=== PATIENT | male | born 1975 | race Caucasian/White ===

== ENCOUNTER → 2016-05-20 | Outpatient (CLI) | payer OTHER ==
--- NOTE | 2016-05-20 09:58 | XR ---
EXAM TYPE: LUMBAR SPINE X RAY SERIES COMPARISON: NONE HISTORY: Lower back pain TECHNIQUE: 4 views are submitted. FINDINGS: Alignment is anatomic. The pedicles are intact. The transverse processes are intact. There is no s pondylolysis or spondylolisthesis. Chronic appearing deformity of the transverse process of L1. Dege nerative disc disease and facet arthropathy L5-S1 with mild hypertrophic changes. Vascular calcificat ion seen. IMPRESSION: 1. No acute process. If symptoms persist consider MRI.
== END | disposition home or self-care (01) ==
LOC: RADXRMAIN 09:30
PROVIDERS: ATTEND Internal Medicine
DX: M54.5 Low back pain (principal)
CPT/HCPCS: 72100

== ENCOUNTER → 2016-06-06 | Outpatient (CLI) | payer OTHER ==
--- NOTE | 2016-06-06 18:40 | MR ---
EXAMINATION TYPE: MR lumbar spine wo con DATE OF EXAM: 06/06/2016 2:10 PM COMPARISON: NONE HISTORY: Low back pain CONTRAST: 0 mL intravenous . TECHNIQUE: Multiplanar, multisequence images of the lumbar spine were acquired. FINDINGS: L5-S1: Disc bulging is present with moderate anterior thecal sac compression. Some subligamentous dis c extension beyond the L5 inferior endplate may be present. No spinal canal stenosis is present. Ther e is endplate change at the L5-S1 level. No spinal canal stenosis. Moderate right foraminal stenosi s is present. Disc desiccation is present. L4-L5: Broad-based disc bulge is present. On T2-weighted sequences there is increased signal within t he posterior superior disc space suggesting an annular tear. This has mild anterior thecal sac compre ssion. No AP spinal canal stenosis is present. Neural foramen are patent. No spinal canal stenosis. No foraminal stenosis. Disc desiccation is present.. L3-L4: No significant disc bulge or disc herniation. No spinal canal stenosis. No foraminal stenosi s. . L2-L3: No significant disc bulge or disc herniation. No spinal canal stenosis. No foraminal stenosi s. . L1-L2: No significant disc bulge or disc herniation. No spinal canal stenosis. No foraminal stenosi s. . T12-L1: No significant disc bulge or disc herniation. No spinal canal stenosis. No foraminal stenos is. . IMPRESSION: 1. Disc bulge at L5-S1 has some subligamentous disc herniation extension beyond the L5 endplate. This has mild anterior thecal sac compression. Moderate right foraminal stenosis present 2. Annular tear with disc bulge L4-5 with mild anterior thecal sac compression.
== END | disposition home or self-care (01) ==
LOC: RADMRIMAIN 13:43
PROVIDERS: ATTEND Internal Medicine
DX: M99.73 Connective tissue and disc stenosis of intervertebral foramina of lumbar region (principal); M51.27 Other intervertebral disc displacement, lumbosacral region
CPT/HCPCS: 72148

== ENCOUNTER 2017-04-01 15:14 | Observation (INO) | payer OTHER ==
[2017-04-01] MEDS ORDERED: ASPIRIN 81 MG PO STA (16:52)
[2017-04-01] MEDS ORDERED: NITROGLYCERIN OINT 1 INCH/GM PACKET TOPICAL STA (16:52)
--- NOTE | 2017-04-01 16:56 | ED ---
General Adult HPI - General Chief complaint: Chest Pain Stated complaint: Chest Pain Time Seen by Provider: 04/01/17 15:32 Source: patient, RN notes reviewed Mode of arrival: wheelchair - History of Present Illness Initial comments: This is a 42-year-old male who presents emergency Department complaining of chest pain for 3 hours. Patient states the pain is in the center of his chest. Patient states deep breathing does not make it worse. Patient states she's also been short of breath and somewhat diaphoretic when this first started. Patient states he is a smoker and he has a mother and a father with previous heart attacks. Patient denies any hypertension high cholesterol diabetes. Patient states he hasn't noticed anything his made the chest pain worse. Patient states currently the chest pain is still there but not as bad as it was earlier. Patient denies any palpitations. Patient denies abdominal pain patient denies any nausea vomiting diarrhea. Patient denies lightheadedness dizziness or near-syncopal episode. Patient denies any swelling to legs or calf pain. - Related Data Home Medications Medication Instructions Recorded Confirmed Azithromycin [Zithromax Z-pack] See Taper PO DAILY 04/01/17 04/01/17 methylPREDNISolone [Medrol Dose See Taper PO DIRECTED 04/01/17 04/01/17 Pack] Allergies Allergy/AdvReac Type Severity Reaction Status Date / Time No Known Allergies Allergy Verified 04/01/17 16:56 Review of Systems ROS Statement: Those systems with pertinent positive or pertinent negative responses have been documented in the HPI. ROS Other: All systems not noted in ROS Statement are negative. 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, SHINGLES 2011 History of Any Multi-Drug Resistant Organisms: None Reported Past Surgical History: Tonsillectomy Additional Past Surgical History / Comment(s): BULGING DISC Past Anesthesia/Blood Transfusion Reactions: No Reported Reaction Past Psychological History: No Psychological Hx Reported Smoking Status: Current every day smoker Past Alcohol Use History: None Reported Past Drug Use History: None Reported - Past Family History Mother Family Medical History: Diabetes Mellitus Additional Family Medical History / Comment(s): HEART DISEASE Father Family Medical History: Diabetes Mellitus General Exam - General Exam Comments Initial Comments: GENERAL: Patient is well-developed and well-nourished. Patient is nontoxic and well- hydrated and is in mild distress. ENT: Neck is soft and supple. No significant lymphadenopathy is noted. Oropharynx is clear. Moist mucous membranes. Neck has full range of motion without eliciting any pain. EYES: The sclera were anicteric and conjunctiva were pink and moist. Extraocular movements were intact and pupils were equal round and reactive to light. Eyelids were unremarkable. PULMONARY: Unlabored respirations. Good breath sounds bilaterally. No audible rales rhonchi or wheezing was noted. CARDIOVASCULAR: There is a regular rate and rhythm without any murmurs gallops or rubs. ABDOMEN: Soft and nontender with normal bowel sounds. SKIN: Skin is clear with no lesions or rashes and otherwise unremarkable. NEUROLOGIC: Patient is alert and oriented x3. Cranial nerves II through XII are grossly intact. Motor and sensory are also intact. Normal speech, volume and content. Symmetrical smile. MUSCULOSKELETAL: Normal extremities with adequate strength and full range of motion. No lower extremity swelling or edema. No calf tenderness. LYMPHATICS: No significant lymphadenopathy is noted PSYCHIATRIC: Normal psychiatric evaluation. Normal interpersonal interactions appears functionally intact in deals appropriately with others. No signs of depression. No signs of anxiety. Course Vital Signs 04/01/17 04/01/17 15:18 17:10 Temperature 97 F L Pulse Rate 109 H 70 Respiratory 22 18 Rate Blood Pressure 139/83 132/79 O2 Sat by Pulse 100 100 Oximetry Medical Decision Making - Medical Decision Making EKG shows a normal sinus rhythm at 86 bpm OH interval is on a 54 QRS is 82 QT interval 366 QTC is 437. Patient's EKG shows no ST segment elevation or depression or T wave abnormalities are noted. Chest x-ray showed no acute abnormality. Patient had Nitropaste and aspirin in the emergency department and when I reevaluated the patient he stated his pain seemed to get better with the Nitropaste. Because this patient's unstable angina started the patient on heparin. I called Dr. Peters admitted the patient I wrote admitting orders and I consult cardiology. - Lab Data Result diagrams: 04/01/17 16:43 04/01/17 16:43 Lab Results 04/01/17 04/01/17 04/01/17 Range/Units 16:43 16:43 16:43 WBC 8.9 (3.8-10.6) k/uL RBC 4.83 (4.30-5.90) m/uL Hgb 15.2 (13.0-17.5) gm/dL Hct 46.1 (39.0-53.0) % MCV 95.5 (80.0-100.0) fL MCH 31.4 (25.0-35.0) pg MCHC 32.9 (31.0-37.0) g/dL RDW 12.2 (11.5-15.5) % Plt Count 287 (150-450) k/uL Neutrophils % 54 % Lymphocytes % 31 % Monocytes % 7 % Eosinophils % 7 % Basophils % 1 % Neutrophils # 4.8 (1.3-7.7) k/uL Lymphocytes # 2.7 (1.0-4.8) k/uL Monocytes # 0.6 (0-1.0) k/uL Eosinophils # 0.6 (0-0.7) k/uL Basophils # 0.1 (0-0.2) k/uL PT (9.0-12.0) sec INR (<1.2) APTT (22.0-30.0) sec Sodium 142 (137-145) mmol/L Potassium 3.9 (3.5-5.1) mmol/L Chloride 104 (98-107) mmol/L Carbon Dioxide 25 (22-30) mmol/L Anion Gap 13 mmol/L BUN 15 (9-20) mg/dL Creatinine 1.00 (0.66-1.25) mg/dL Est GFR (MDRD) Af Amer >60 (>60 ml/min/1.73 sqM) Est GFR (MDRD) Non-Af >60 (>60 ml/min/1.73 sqM) Glucose 89 (74-99) mg/dL Calcium 9.7 (8.4-10.2) mg/dL Magnesium 2.2 (1.6-2.3) mg/dL Total Bilirubin 0.4 (0.2-1.3) mg/dL AST 31 (17-59) U/L ALT 26 (21-72) U/L Alkaline Phosphatase 66 (38-126) U/L Total Creatine Kinase 204 H (55-170) U/L CK-MB (CK-2) 1.2 (0.0-2.4) ng/mL CK-MB (CK-2) Rel Index 0.6 Troponin I <0.012 (0.000-0.034) ng/mL Total Protein 7.1 (6.3-8.2) g/dL Albumin 4.2 (3.5-5.0) g/dL 04/01/17 Range/Units 16:43 WBC (3.8-10.6) k/uL RBC (4.30-5.90) m/uL Hgb (13.0-17.5) gm/dL Hct (39.0-53.0) % MCV (80.0-100.0) fL MCH (25.0-35.0) pg MCHC (31.0-37.0) g/dL RDW (11.5-15.5) % Plt Count (150-450) k/uL Neutrophils % % Lymphocytes % % Monocytes % % Eosinophils % % Basophils % % Neutrophils # (1.3-7.7) k/uL Lymphocytes # (1.0-4.8) k/uL Monocytes # (0-1.0) k/uL Eosinophils # (0-0.7) k/uL Basophils # (0-0.2) k/uL PT 9.5 (9.0-12.0) sec INR 1.0 (<1.2) APTT 22.7 (22.0-30.0) sec Sodium (137-145) mmol/L Potassium (3.5-5.1) mmol/L Chloride (98-107) mmol/L Carbon Dioxide (22-30) mmol/L Anion Gap mmol/L BUN (9-20) mg/dL Creatinine (0.66-1.25) mg/dL Est GFR (MDRD) Af Amer (>60 ml/min/1.73 sqM) Est GFR (MDRD) Non-Af (>60 ml/min/1.73 sqM) Glucose (74-99) mg/dL Calcium (8.4-10.2) mg/dL Magnesium (1.6-2.3) mg/dL Total Bilirubin (0.2-1.3) mg/dL AST (17-59) U/L ALT (21-72) U/L Alkaline Phosphatase (38-126) U/L Total Creatine Kinase (55-170) U/L CK-MB (CK-2) (0.0-2.4) ng/mL CK-MB (CK-2) Rel Index Troponin I (0.000-0.034) ng/mL Total Protein (6.3-8.2) g/dL Albumin (3.5-5.0) g/dL Critical Care Time Critical Care Time: Yes Total Critical Care Time: 35 Disposition Clinical Impression: Unstable angina Disposition: ADMITTED IP TO THIS HOSP Referrals: Jesus Peters MD [Primary Care Provider] - 1-2 days Time of Disposition: 18:16
[2017-04-01 17:13] LABS: Basophils # (A) 0.1 k/uL (0-0.2); Basophils % (A) 1 %; Eosinophils # (A) 0.6 k/uL (0-0.7); Eosinophils % (A) 7 %; HCT 46.1 % (39.0-53.0); HGB 15.2 gm/dL (13.0-17.5); Lymphocytes # (A) 2.7 k/uL (1.0-4.8); Lymphocytes % (A) 31 %; MCH 31.4 pg (25.0-35.0); MCHC 32.9 g/dL (31.0-37.0); MCV 95.5 fL (80.0-100.0); Mean Platelet Volume 6.9; Monocytes # (A) 0.6 k/uL (0-1.0); Monocytes % (A) 7 %; Neutrophils # (A) 4.8 k/uL (1.3-7.7); Neutrophils % (A) 54 %; Platelet Count 287 k/uL (150-450); RBC 4.83 m/uL (4.30-5.90); RDW 12.2 % (11.5-15.5); WBC 8.9 k/uL (3.8-10.6)
[2017-04-01 17:29] LABS: ALT 26 U/L (21-72); AST 31 U/L (17-59); Albumin 4.2 g/dL (3.5-5.0); Alkaline Phosphatase 66 U/L (38-126); Anion Gap 13 mmol/L; Blood Urea Nitrogen 15 mg/dL (9-20); Calcium 9.7 mg/dL (8.4-10.2); Carbon Dioxide 25 mmol/L (22-30); Chloride 104 mmol/L (98-107); Glucose 89 mg/dL (74-99); Magnesium 2.2 mg/dL (1.6-2.3); Potassium 3.9 mmol/L (3.5-5.1); Sodium 142 mmol/L (137-145); Total Bilirubin 0.4 mg/dL (0.2-1.3); Total Protein 7.1 g/dL (6.3-8.2)
--- NOTE | 2017-04-01 17:29 | XR ---
EXAMINATION TYPE: XR chest 2V DATE OF EXAM: 04/01/2017 COMPARISON: 09/03/2015 HISTORY: Chest pain TECHNIQUE: Frontal and lateral views of the chest are obtained. FINDINGS: Heart and mediastinum are normal. Lungs are clear. Diaphragm is normal. Bony thorax is int act. There are chest leads. Conclusion normal chest. No change.
[2017-04-01 17:38] LABS: Creatine Kinase 204 U/L (55-170)
[2017-04-01 17:51] LABS: Creatine Kinase MB 1.2 ng/mL (0.0-2.4); Troponin I <0.012 ng/mL (0.000-0.034)
[2017-04-01 17:55] LABS: Partial Thromboplastin Time 22.7 sec (22.0-30.0)
[2017-04-01 17:59] LABS: Prothrombin Time 9.5 sec (9.0-12.0)
[2017-04-01] MEDS ORDERED: HEPARIN SODIUM,PORCINE 5,000 UNIT/ML 1 ML VIAL IV ONE (18:14)
[2017-04-01] MEDS ORDERED: HEPARIN SOD,PORK IN 0.45% NACL 25,000 UNIT in 0.45% NACL 1 500ML.BAG IV SCH (18:15)
[2017-04-01] MEDS ORDERED: NITROGLYCERIN SL TABS 0.4 MG TAB SUBLINGUAL PRN (18:16)
[2017-04-01 20:45] VITALS: BMI 21.7
[2017-04-01] MEDS ORDERED: MORPHINE SULFATE 4 MG/ML SYRINGE IVP PRN (21:10)
[2017-04-01] MEDS ORDERED: IBUPROFEN 800 MG TAB PO PRN (21:10)
[2017-04-01] MEDS: IBUPROFEN 400 MG TAB PO PRN (22:24)
[2017-04-01 23:04] LABS: Creatine Kinase 161 U/L (55-170)
[2017-04-01 23:17] LABS: Creatine Kinase MB 0.9 ng/mL (0.0-2.4); Troponin I <0.012 ng/mL (0.000-0.034)
[2017-04-02] MEDS: NITROGLYCERIN OINT 1 INCH/GM PACKET TOPICAL SCH ×2 (00:37→06:17)
[2017-04-02 04:38] LABS: Cholesterol 128 mg/dL (<200); HDL Cholesterol 41 mg/dL (40-60); LDL Cholesterol,Calculated 61 mg/dL (0-99); Triglycerides 131 mg/dL (<150)
[2017-04-02 04:51] LABS: Creatine Kinase 120 U/L (55-170)
[2017-04-02 05:04] LABS: Creatine Kinase MB 0.7 ng/mL (0.0-2.4); Troponin I <0.012 ng/mL (0.000-0.034)
[2017-04-02] MEDS: IBUPROFEN 400 MG TAB PO PRN (08:57)
[2017-04-02 09:00] VITALS: RESP 16
[2017-04-02] MEDS ORDERED: ASPIRIN 325 MG TAB PO SCH (09:00)
--- NOTE | 2017-04-02 10:09 | P.CRDCN ---
History of Present Illness Consult date: 04/02/17 Consult reason: chest pain History of present illness: Mr. Lange is a pleasant 42-year-old male past medical history significant for gasstroesophageal reflux disease, rheumatic fever as a child and chronic tobacco use. He denies history of coronary artery disease and has not followed with a vice chairman for any reason. We have been asked to see him in consultation for chest pain. He states he had a tooth pulled on Wednesday and was recovering typically at home with mild mouth discomfort. He woke up morning with a sharp midsternal chest pain associated with shallow labored breathing, dizziness, diaphoresis and radiation through to the back. He states the dizziness diaphoresis and shortness of breath persisted for approximately 45 minutes and seemed to resolve by the time he got to the emergency room. He continued to have sharp chest pain until he was given morphine injection. The pain subsided after that but came back again through the night. The pain comes at rest and is not associated with movement or deep inspiration. Telemetry tracings have been unremarkable. At the time of my exam he is chest pain free and denies shortness of breath, dizziness, palpitations, diaphoresis, nausea or vomiting. He also denies history of PND or orthopnea. He does however complain of mildy productive cough recently that he is supposed to be on an antibiotic but hasn't picked it up fro the pharmacy yet. EKG on arrival reveals sinus mechanism with no acute ST or T-wave abnormalities. Chest xray is negative for an acute cardiopulmonary process. Laboratory data reviewed, hgb 15.2, plt 287, potassium 3.9, magnesium 2.2, creatinine 1.0, cardiac enzymes negative x3, LDL 61, HDL 41 He takes no daily medications. Most recent stress test performed in August 2015 with a stress echocardiogram was negative for evidence of stress-induced ischemia. Most recent echocardiogram was performed in August 2015 revealed reserved left ventricular systolic function with ejection fraction 55%, mild MR, mild TR and mild aortic valve sclerosis with no stenosis. Review of Systems At the time of my exam: CONSTITUTIONAL: Denies fever. Denies chills. EYES: Denies blurred vision. Denies vision changes. Denies eye pain. EARS, NOSE, MOUTH & THROAT: Denies headache. Denies sore throat. Denies ear pain. Complains of right mouth pain status post tooth extraction. CARDIOVASCULAR: Denies chest pain. Denies shortness of breath. Denies orthopnea. Denies PND. Denies palpitations. RESPIRATORY: Denies cough. GASTROINTESTINAL: Denies abdominal pain. Denies diarrhea. Denies constipation. Denies nausea. Denies vomiting. MUSCULOSKELETAL: Denies myalgias. INTEGUMENTARY: Denies pruitis. Denies rash. NEUROLOGIC: Denies numbness. Denies tingling. Denies weakness. PSYCHIATRIC: Denies anxiety. Denies depression. ENDOCRINE: Denies fatigue. Denies weight change. Denies polydipsia. Denies polyurina. GENITOURINARY: Denies burning, hematuria or urgency with micturation. HEMATOLOGIC: Denies history of anemia. Denies bleeding. 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 PT'S DAUGHTER LIVES WITH HIM. NO SERVICE IN BACKGROUND. PT STATED HE HAS'NT BEEN TO A DR IN 10 YEARS. Smoking Status: Current every day smoker Past Alcohol Use History: None Reported Additional Past Alcohol Use History / Comment(s): STARTED SMOKING AT AGE 13, SMOKES 1 PPD, SMOKING INFO GIVEN TO PT. Past Drug Use History: None Reported - Past Family History Mother Family Medical History: Diabetes Mellitus Additional Family Medical History / Comment(s): HEART DISEASE Father Family Medical History: Diabetes Mellitus Medications and Allergies Home Medications Medication Instructions Recorded Confirmed Type Azithromycin [Zithromax Z-pack] See Taper PO DAILY 04/01/17 04/01/17 History methylPREDNISolone [Medrol Dose See Taper PO DIRECTED 04/01/17 04/01/17 History Pack] Allergies Allergy/AdvReac Type Severity Reaction Status Date / Time No Known Allergies Allergy Verified 04/01/17 20:46 Physical Exam Vitals: Vital Signs Temp Pulse Pulse Resp BP BP Pulse Ox 04/02/17 04:00 97.5 F L 57 L 15 86/50 98 04/02/17 03:58 54 L 16 04/02/17 00:00 58 L 16 04/01/17 23:26 97 F L 60 16 97/47 97 04/01/17 20:02 97.4 F L 15 102/65 96 04/01/17 20:00 62 16 04/01/17 19:44 70 18 109/57 95 04/01/17 19:07 65 18 110/66 97 04/01/17 18:28 68 18 116/73 97 04/01/17 17:10 70 18 132/79 100 04/01/17 15:18 97 F L 109 H 22 139/83 100 Intake and Output 04/01/17 04/02/17 04/02/17 22:59 06:59 14:59 Intake Total 664 597.904 Balance 664 597.904 Intake: IV 288 0.9 NS @ KVO 160 Heparin Sod,Pork in 0.45% 128 NaCl 25,000 unit In 0.45 % NaCl 1 500ml.bag @ 12 UNITS/KG/HR 15.78 mls/hr IV .Q24H SWETAH Rx#: [id number] Intake, IV Titration 64 159.904 Amount Heparin Sod,Pork in 0.45% 64 159.904 NaCl 25,000 unit In 0.45 % NaCl 1 500ml.bag @ 12 UNITS/KG/HR 15.78 mls/hr IV .Q24H SWETHA Rx#: [id number] Oral 600 150 Other: Voiding Method Toilet Toilet # Voids 2 2 Weight 64.864 kg Blood pressure 86/50 heart rate 57 afebrile GENERAL: This is a 42-year-old male in no apparent distress at the time of my examination. HEENT: Head is atraumatic, normocephalic. Pupils are equal, round. Sclerae anicteric. Conjunctivae are clear. Mucous membranes of the mouth are moist. Neck is supple. There is no jugular venous distention. No carotid bruit is heard. LUNGS: Clear to auscultation no wheezes, rales or rhonchi. No chest wall tenderness is noted on palpation or with deep breathing. HEART: Regular rate and rhythm without murmurs, rubs or gallops. S1 and S2 heard. ABDOMEN: Soft, nontender. Bowel sounds are heard. No organomegaly noted. EXTREMITIES: No evidence of peripheral edema and no calf tenderness noted. VASCULAR: Radial and dorsalis pedis pulses palpated, no evidence of clubbing. NEUROLOGIC: Patient is awake, alert and oriented x3. Results 04/01/17 16:43 04/01/17 16:43 Cardiac Enzymes 04/01/17 04/01/17 04/01/17 Range/Units 16:43 16:43 22:25 AST 31 (17-59) U/L CK-MB (CK-2) 1.2 0.9 (0.0-2.4) ng/mL Troponin I <0.012 <0.012 (0.000-0.034) ng/mL 04/02/17 Range/Units 04:09 AST (17-59) U/L CK-MB (CK-2) 0.7 (0.0-2.4) ng/mL Troponin I <0.012 (0.000-0.034) ng/mL Coagulation 04/01/17 04/02/17 Range/Units 16:43 04:09 PT 9.5 (9.0-12.0) sec APTT 22.7 34.4 H (22.0-30.0) sec Lipids 04/02/17 Range/Units 04:09 Triglycerides 131 (<150) mg/dL Cholesterol 128 (<200) mg/dL HDL Cholesterol 41 (40-60) mg/dL CBC 04/01/17 Range/Units 16:43 WBC 8.9 (3.8-10.6) k/uL RBC 4.83 (4.30-5.90) m/uL Hgb 15.2 (13.0-17.5) gm/dL Hct 46.1 (39.0-53.0) % Plt Count 287 (150-450) k/uL Comprehensive Metabolic Panel 04/01/17 Range/Units 16:43 Sodium 142 (137-145) mmol/L Potassium 3.9 (3.5-5.1) mmol/L Chloride 104 (98-107) mmol/L Carbon Dioxide 25 (22-30) mmol/L BUN 15 (9-20) mg/dL Creatinine 1.00 (0.66-1.25) mg/dL Glucose 89 (74-99) mg/dL Calcium 9.7 (8.4-10.2) mg/dL AST 31 (17-59) U/L ALT 26 (21-72) U/L Alkaline Phosphatase 66 (38-126) U/L Total Protein 7.1 (6.3-8.2) g/dL Albumin 4.2 (3.5-5.0) g/dL Current Medications Generic Name Dose Route Start Last Admin Trade Name Freq PRN Reason Stop Dose Admin Aspirin 325 mg 04/02/17 09:00 Aspirin PO DAILY [facility] Heparin Sodium/Sodium Chloride 500 mls @ 15.78 mls/hr 04/01/17 18:15 05:12 25,000 unit/ Sodium Chloride IV 15 units/kg/hr .Q24H SWETHA 19.73 mls/hr Protocol Titration 12 UNITS/KG/HR Ibuprofen 800 mg 04/01/17 21:43 04/01/17 22:24 Motrin PO 800 mg TID PRN Administration Pain Morphine Sulfate 1 mg 04/01/17 21:10 04/01/17 21:43 Morphine Sulfate (Inj) IVP 1 mg Q3H PRN Administration Pain Nitroglycerin 1 inch 04/02/17 00:00 04/02/17 06:17 Nitro-Bid Oint TOPICAL Not Given Q6HR [facility] Nitroglycerin 0.4 mg 04/01/17 18:16 Nitrostat SUBLINGUAL Q5M PRN Chest Pain Intake and Output 04/01/17 04/02/17 04/02/17 22:59 06:59 14:59 Intake Total 664 597.904 Balance 664 597.904 Intake: IV 288 0.9 NS @ KVO 160 Heparin Sod,Pork in 0.45% 128 NaCl 25,000 unit In 0.45 % NaCl 1 500ml.bag @ 12 UNITS/KG/HR 15.78 mls/hr IV .Q24H [facility] Rx#: [id number] Intake, IV Titration 64 159.904 Amount Heparin Sod,Pork in 0.45% 64 159.904 NaCl 25,000 unit In 0.45 % NaCl 1 500ml.bag @ 12 UNITS/KG/HR 15.78 mls/hr IV .Q24H [facility] Rx#: [id number] Oral 600 150 Other: Voiding Method Toilet Toilet # Voids 2 2 Weight 64.864 kg 04/01/17 16:43 04/01/17 16:43 Assessment and Plan Assessment: ASSESSMENT 1. Chest pain, atypical with no EKG evidence of ischemia and negative cardiac enzymes. 2. History of rheumatic fever 3. Chronic daily tobacco abuse 4. History of tooth extraction 03/31 PLAN Discontinue heparin infusion. Avoid IV narcotics secondary to hypotension. Obtain 2-D echocardiogram and Doppler study to assess cardiac structure and function. Perform stress echocardiogram to evaluate for stress-induced ischemia. Smoking cessation discussed and highly recommended. Further recommendations be based upon diagnostic findings, if stress test is negative the patient is stable from a cardiac perspective. Thank you kindly for this consultation. Nurse Practitioner note has been reviewed, I agree with a documented findings and plan of care. Patient was seen and examined.
--- NOTE | 2017-04-02 11:19 | ECHOS ---
STRESS ECHOCARDIOGRAM DATE OF SERVICE: 04/02/2017 INDICATIONS: Chest pain. MEDICATIONS: BASELINE HEART RATE: 56 BASELINE BLOOD PRESSURE: 102/82 MAXIMUM HEART RATE: 166 MAXIMUM BLOOD PRESSURE: 166/53 85% MPHR: 150 100% MPHR: 176 METS: 12.1 MAXIMUM STAGE REACHED: III TOTAL EXERCISE TIME: 11:01 CLINICAL INFORMATION: Baseline rhythm sinus mechanism, rate 56, normal axis and intervals. Early repolarization. Baseline blood pressure 102/82 mmHg. Patient exercised on Alexandre protocol for 11 minute and 1 second reaching peak rate of 166 beats per minute, which is equal to 94% maximum predicted heart rate. Peak blood pressure 166/53 mmHg. Test was terminated secondary to fatigue. There was no chest pain. Electrocardiograph monitoring revealed no evidence of diagnostic ischemic ST deviation. Baseline echocardiogram revealed normal wall motion. At peak exercise, there was normal wall motion augmentation with no hypokinesis or dyskinesis. CONCLUSION: 1. Good exercise tolerance with normal electrocardiograph response to exercise. 2. Normal stress echocardiogram with no evidence of stress induced ischemia. MMODL / IJN: [id number] /
--- NOTE | 2017-04-02 12:10 | P.HPIM ---
History of Present Illness H&P Date: 04/02/17 Chief Complaint: Chest pain 42-year-old gentleman who presented to the hospital with chest pain. Patient described his pain as sharp and in the middle of his chest. Patient said that he was slightly dizzy and diaphoretic when he had the pain. He rates his pain as 7 out of 10 in severity. He reports radiation to his back. Pain lasted approximately 45 minutes. He was evaluated in the emergency room and 12 leads EKG showed no acute ischemic changes. Serial troponin were negative. Patient was placed on observation and was seen and evaluated by cardiology. He underwent stress echocardiogram that was unremarkable. Patient was medically cleared for discharge. He said that some of his symptoms were attributed to underlying anxiety and family stress. He also have a history of GERD and not taking any medication at home. He will be discharged home on Protonix and Effexor and follow-up in the office as directed. Review of Systems Review of system: 14 points review of systems were obtained and were negative except to what were mentioned in the HPI. 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 PT'S DAUGHTER LIVES WITH HIM. NO SERVICE IN BACKGROUND. PT STATED HE HAS'NT BEEN TO A DR IN 10 YEARS. Smoking Status: Current every day smoker Past Alcohol Use History: None Reported Additional Past Alcohol Use History / Comment(s): STARTED SMOKING AT AGE 13, SMOKES 1 PPD, SMOKING INFO GIVEN TO PT. Past Drug Use History: None Reported - Past Family History Mother Family Medical History: Diabetes Mellitus Additional Family Medical History / Comment(s): HEART DISEASE Father Family Medical History: Diabetes Mellitus Medications and Allergies Home Medications Medication Instructions Recorded Confirmed Type Azithromycin [Zithromax Z-pack] See Taper PO DAILY 04/01/17 04/01/17 History methylPREDNISolone [Medrol Dose See Taper PO DIRECTED 04/01/17 04/01/17 History Pack] Allergies Allergy/AdvReac Type Severity Reaction Status Date / Time No Known Allergies Allergy Verified 04/01/17 20:46 Physical Exam Vitals: Vital Signs Temp Pulse Pulse Resp BP BP Pulse Ox 04/02/17 08:00 97.5 F L 60 16 84/47 97 04/02/17 04:00 97.5 F L 57 L 15 86/50 98 04/02/17 03:58 54 L 16 04/02/17 00:00 58 L 16 04/01/17 23:26 97 F L 60 16 97/47 97 04/01/17 20:02 97.4 F L 15 102/65 96 04/01/17 20:00 62 16 04/01/17 19:44 70 18 109/57 95 04/01/17 19:07 65 18 110/66 97 04/01/17 18:28 68 18 116/73 97 04/01/17 17:10 70 18 132/79 100 04/01/17 15:18 97 F L 109 H 22 139/83 100 Intake and Output 04/01/17 04/02/17 04/02/17 22:59 06:59 14:59 Intake Total 664 597.904 Balance 664 597.904 Intake: IV 288 0.9 NS @ KVO 160 Heparin Sod,Pork in 0.45% 128 NaCl 25,000 unit In 0.45 % NaCl 1 500ml.bag @ 12 UNITS/KG/HR 15.78 mls/hr IV .Q24H SWETHA Rx#: [id number] Intake, IV Titration 64 159.904 Amount Heparin Sod,Pork in 0.45% 64 159.904 NaCl 25,000 unit In 0.45 % NaCl 1 500ml.bag @ 12 UNITS/KG/HR 15.78 mls/hr IV .Q24H SWETHA Rx#: [id number] Oral 600 150 Other: Voiding Method Toilet Toilet Toilet # Voids 2 2 2 Weight 64.864 kg General: The patient is awake and alert, in no distress Eye: there is normal conjunctiva bilaterally. Neck: The neck is supple, there is no JVD. Cardiovascular: Normal S1-S2, no S3-S4, no murmurs. Respiratory: Lungs clear to auscultation bilaterally Gastrointestinal: Abdomen is soft, nontender Musculoskeletal: There is no pedal edema. Neurological:. Speech is normal. Skin: Skin is warm and dry Results CBC & Chem 7: 04/01/17 16:43 04/01/17 16:43 Labs: Abnormal Lab Results - Last 24 Hours (Table) 04/01/17 04/02/17 Range/Units 16:43 04:09 APTT 34.4 H (22.0-30.0) sec Total Creatine Kinase 204 H (55-170) U/L Thrombosis Risk Factor Assmnt - Choose All That Apply Each Factor Represents 1 point: Age 41-60 years Thrombosis Risk Factor Assessment Total Risk Factor Score: 1 Thrombosis Risk Factor Assessment Level: Low Risk Assessment and Plan Assessment: 42-year-old gentleman who presented to the hospital with chest pain. Patient described his pain as sharp and in the middle of his chest. Patient said that he was slightly dizzy and diaphoretic when he had the pain. He rates his pain as 7 out of 10 in severity. He reports radiation to his back. Pain lasted approximately 45 minutes. He was evaluated in the emergency room and 12 leads EKG showed no acute ischemic changes. Serial troponin were negative. Patient was placed on observation and was seen and evaluated by cardiology. He underwent stress echocardiogram that was unremarkable. Patient was medically cleared for discharge. He said that some of his symptoms were attributed to underlying anxiety and family stress. He also have a history of GERD and not taking any medication at home. He will be discharged home on Protonix and Effexor and follow-up in the office as directed.
--- NOTE | 2017-04-02 12:11 | P.DS ---
Providers Date of admission: 04/01/17 18:16 Expected date of discharge: 04/02/17 Attending physician: Jesus Peters Consults: 04/01/17 18:16 Consult Physician Urgent Consulting Provider: [facility] Consult Reason/Comments: Unstable angina Do you want consulting provider notified?: Yes Primary care physician: Jesus Lincoln Hospital Course: 42-year-old gentleman who presented to the hospital with chest pain. Patient described his pain as sharp and in the middle of his chest. Patient said that he was slightly dizzy and diaphoretic when he had the pain. He rates his pain as 7 out of 10 in severity. He reports radiation to his back. Pain lasted approximately 45 minutes. He was evaluated in the emergency room and 12 leads EKG showed no acute ischemic changes. Serial troponin were negative. Patient was placed on observation and was seen and evaluated by cardiology. He underwent stress echocardiogram that was unremarkable. Patient was medically cleared for discharge. He said that some of his symptoms were attributed to underlying anxiety and family stress. He also have a history of GERD and not taking any medication at home. He will be discharged home on Protonix and Effexor and follow-up in the office as directed. Plan - Discharge Summary Discharge Rx Participant: No New Discharge Prescriptions: New Pantoprazole Sodium [Protonix] 20 mg PO DAILY #30 tablet. Venlafaxine HCl ER [Effexor Xr] 75 mg PO DAILY #30 cap No Action methylPREDNISolone [Medrol Dose Pack] See Taper PO DIRECTED Azithromycin [Zithromax Z-pack] See Taper PO DAILY Discharge Medication List Azithromycin [Zithromax Z-pack] See Taper PO DAILY 04/01/17 [History] methylPREDNISolone [Medrol Dose Pack] See Taper PO DIRECTED 04/01/17 [History ] Pantoprazole Sodium [Protonix] 20 mg PO DAILY #30 tablet. 04/02/17 [Rx] Venlafaxine HCl ER [Effexor Xr] 75 mg PO DAILY #30 cap 04/02/17 [Rx] Follow up Appointment(s)/Referral(s): Jesus Peters MD [Primary Care Provider] - 2 Weeks Discharge Disposition: HOME SELF-CARE
[2017-04-02 12:21] VITALS: BP 78/43; PULSE 72; TEMP 98
--- NOTE | 2017-04-14 15:23 | ECHOF ---
Referral Reason:chest pain MEASUREMENTS -------- HEIGHT: 172.7 cm WEIGHT: 64.9 kg BP: RVIDd: 2.2 cm (< 3.3) IVSd: 0.8 cm (0.6 - 1.1) LVIDd: 3.9 cm (3.9 - 5.3) LVPWd: 0.8 cm (0.6 - 1.1) IVSs: 1.4 cm LVIDs: 2.3 cm LVPWs: 1.5 cm LAESV Index (A-L): 16.53 ml/m Ao Diam: 2.8 cm (2.0 - 3.7) AV Cusp: 2.0 cm (1.5 - 2.6) LA Diam: 3.2 cm (2.7 - 3.8) MV EXCURSION: 18.525 mm (> 18.000) MV EF SLOPE: 203 mm/s (70 - 150) EPSS: 0.6 cm MV E Garry: 0.94 m/s MV DecT: 262 ms MV A Garry: 0.38 m/s MV E/A Ratio: 2.45 RAP: 5.00 mmHg RVSP: 24.92 mmHg FINDINGS -------- Sinus rhythm. This was a technically good study. The left ventricular size is normal. Left ventricular wall thickness is normal. Overall left vent ricular systolic function is normal with, an EF between 55 - 60 %. The right ventricle is normal in size and function. The left atrium is normal in size. The right atrium is normal in size. The aortic valve is trileaflet, and appears structurally normal. No aortic stenosis or regurgitation. The mitral valve is normal. Mild mitral regurgitation is present. Trace tricuspid regurgitation present. There is no evidence of pulmonary hypertension. The right ventricular systolic pressure, as measured by Doppler, is 24.92mmHg. There is no pulmonic regurgitation present. The aortic root size is normal. Normal inferior vena cava with normal inspiratory collapse consistent with estimated right atrial pre ssure of 5 mmHg. There is no pericardial effusion. CONCLUSIONS -------- 1. Sinus rhythm. 2. This was a technically good study. 3. The left ventricular size is normal. 4. Left ventricular wall thickness is normal. 5. Overall left ventricular systolic function is normal with, an EF between 55 - 60 %. 6. The left atrium is normal in size. 7. The aortic valve is trileaflet, and appears structurally normal. No aortic stenosis or regurgitati on. 8. Mild mitral regurgitation is present. 9. Trace tricuspid regurgitation present. 10. There is no evidence of pulmonary hypertension. 11. There is no pulmonic regurgitation present. 12. The aortic root size is normal. 13. Normal inferior vena cava with normal inspiratory collapse consistent with estimated right atrial pressure of 5 mmHg. 14. There is no pericardial effusion. BRICKLAYER HELPER: Claudia Thornotn RDCS
== END 2017-04-02 12:53 | disposition home or self-care (01) ==
LOC: EC 15:14 → 3OBS 18:16
PROVIDERS: ADMIT Internal Medicine; ATTEND Internal Medicine
DX: R07.89 Other chest pain (principal); R61 Generalized hyperhidrosis; R05 Cough; F41.9 Anxiety disorder, unspecified; Z73.3 Stress, not elsewhere classified; F17.210 Nicotine dependence, cigarettes, uncomplicated; Z98.818 Other dental procedure status; Z86.19 Personal history of other infectious and parasitic diseases; Z83.3 Family history of diabetes mellitus; Z82.49 Family history of ischemic heart disease and other diseases of the circulatory system; R06.02 Shortness of breath; K21.9 Gastro-esophageal reflux disease without esophagitis; I95.9 Hypotension, unspecified
CPT/HCPCS: 96376 ×2; 96365 ×2; 99291 ×2; 93005 ×2; 96366 ×2; 96375; 36415; 93017; 93306; 93350; 80061; 80053; 82550 ×2; 82553 ×2; 83735; 84484 ×2; 85025; 85610; 85730 ×2; 71046; G0378 ×2; J2270; J1644 ×2

== ENCOUNTER 2018-01-19 10:26 | Emergency (ER) | payer OTHER ==
[2018-01-19] MEDS ORDERED: DIPH,PERTUS(ACELL)TETVAC-LF 0.5 ML VIAL IM ONE (10:54)
--- NOTE | 2018-01-19 11:09 | XR ---
EXAMINATION TYPE: XR hand complete RT DATE OF EXAM: 01/19/2018 CLINICAL HISTORY: pain TECHNIQUE: Frontal, lateral and oblique images of the right hand are obtained. COMPARISON: None. FINDINGS: There is no acute fracture/dislocation evident. Healed fracture fifth metacarpal neck. Th e joint spaces appear within normal limits. The overlying soft tissue appears unremarkable. IMPRESSION: There is no acute fracture or dislocation ICD 10 NO FRACTURE, INITIAL EVALUATION
[2018-01-19] MEDS ORDERED: KETOROLAC 30 MG/ML 1 ML VIAL IVP STA (11:38)
[2018-01-19] MEDS ORDERED: AMPICILLIN-SULBACTAM 3 GM in SODIUM CHLORIDE 0.9% 100 ML IVPB STA (11:38)
--- NOTE | 2018-01-19 11:41 | ED ---
General Adult HPI - General Chief complaint: Animal Bite Stated complaint: rt hand injury Time Seen by Provider: 01/19/18 10:37 Source: patient, RN notes reviewed Mode of arrival: ambulatory Limitations: no limitations - History of Present Illness Initial comments: Patient 42-year-old male presented to the emergency room today with chief complaint of a dog bite that occurred 3 days ago. He does admit that his dog accidentally bit him to the right hand. Patient states unsure of his tetanus status. Patient does admit that he was doing well until he felt some discomfort yesterday and then this morning waking up noticed that there is redness and increased swelling and pain. Patient denies any other complaints or symptoms. Patient denies any recent fever, chills, shortness of breath, chest pain, back pain, abdominal pain, nausea or vomiting, headaches or visual changes, or any other complaints. - Related Data Previous Rx's Medication Instructions Recorded Amoxicillin/Potassium Clav 1 each PO Q12HR #20 tab 01/19/18 [Augmentin 875-125 Tablet] Naproxen [Naprosyn] 500 mg PO BID #20 tablet 01/19/18 Allergies Allergy/AdvReac Type Severity Reaction Status Date / Time No Known Allergies Allergy Verified 01/19/18 11:06 Review of Systems ROS Statement: Those systems with pertinent positive or pertinent negative responses have been documented in the HPI. ROS Other: All systems not noted in ROS Statement are negative. 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, SHINGLES 2012 History of Any Multi-Drug Resistant Organisms: None Reported Past Surgical History: Tonsillectomy Additional Past Surgical History / Comment(s): BULGING DISC AND TEAR Past Anesthesia/Blood Transfusion Reactions: No Reported Reaction Past Psychological History: No Psychological Hx Reported Smoking Status: Current every day smoker Past Alcohol Use History: None Reported Past Drug Use History: Marijuana - Past Family History Mother Family Medical History: Diabetes Mellitus Additional Family Medical History / Comment(s): HEART DISEASE Father Family Medical History: Diabetes Mellitus General Exam - General Exam Comments Initial Comments: General: The patient is awake and alert, in no distress, and does not appear acutely ill. Eye: Pupils are equal, round and reactive to light, extra-ocular movements are intact. No nystagmus. There is normal conjunctiva bilaterally. No signs of icterus. Ears, nose, mouth and throat: There are moist mucous membranes and no oral lesions. Neck: The neck is supple, there is no tenderness or JVD. Cardiovascular: There is a regular rate and rhythm. No murmur, rub or gallop is appreciated. Respiratory: Lungs are clear to auscultation, respirations are non-labored, breath sounds are equal. No wheezes, stridor, rales, or rhonchi. Musculoskeletal: Normal ROM, no tenderness. Strength 5/5. Sensation intact. Pulses equal bilaterally 2+. Neurological: A&O x 3. CN II-XII intact, There are no obvious motor or sensory deficits. Coordination appears grossly intact. Speech is normal. Skin: Patient does have redness to the webspace between the first and second digit of the right hand. Redness comes up just above the right wrist. Area is warm to the touch and tender. Psychiatric: Cooperative, appropriate mood & affect, normal judgment. Limitations: no limitations Course Vital Signs 01/19/18 01/19/18 10:34 13:31 Temperature 98.4 F 99.0 F Pulse Rate 94 89 Respiratory 20 18 Rate Blood Pressure 128/79 119/70 O2 Sat by Pulse 99 96 Oximetry Medical Decision Making - Medical Decision Making Patient's labs reviewed and does show 16,000 white count. Lactic acid was negative. Patient's x-ray reviewed and shows possible small foreign body in the web space but it is lower than where the is an incision site and is not felt to be consistent with foreign body from this dog bite. Patient was given dose of antibiotics in the emergency room of [facility]. His tetanus is updated. At this time patient is comfortable following up outpatient with outpatient course of antibiotics. Will be started on Augmentin. Patient is advised follow -up with orthopedics over the next 2 days or return here to the emergency room symptoms increase worsen. He states understanding and is in agreement. - Lab Data Result diagrams: 01/19/18 13:23 01/19/18 13:23 Lab Results 01/19/18 01/19/18 01/19/18 Range/Units 13:23 13:23 13:23 WBC 16.9 H (3.8-10.6) k/uL RBC 4.77 (4.30-5.90) m/uL Hgb 14.9 (13.0-17.5) gm/dL Hct 44.4 (39.0-53.0) % MCV 93.2 (80.0-100.0) fL MCH 31.2 (25.0-35.0) pg MCHC 33.5 (31.0-37.0) g/dL RDW 13.3 (11.5-15.5) % Plt Count 266 (150-450) k/uL Neutrophils % 87 % Lymphocytes % 7 % Monocytes % 4 % Eosinophils % 1 % Basophils % 0 % Neutrophils # 14.7 H (1.3-7.7) k/uL Lymphocytes # 1.1 (1.0-4.8) k/uL Monocytes # 0.8 (0-1.0) k/uL Eosinophils # 0.2 (0-0.7) k/uL Basophils # 0.1 (0-0.2) k/uL Sodium 138 (137-145) mmol/L Potassium 4.5 (3.5-5.1) mmol/L Chloride 107 (98-107) mmol/L Carbon Dioxide 21 L (22-30) mmol/L Anion Gap 10 mmol/L BUN 20 (9-20) mg/dL Creatinine 1.02 (0.66-1.25) mg/dL Est GFR (CKD-EPI)AfAm >90 (>60 ml/min/1.73 sqM) Est GFR (CKD-EPI)NonAf 89 (>60 ml/min/1.73 sqM) Glucose 98 (74-99) mg/dL Plasma Lactic Acid Talha 0.8 (0.7-2.0) mmol/L Calcium 9.5 (8.4-10.2) mg/dL Disposition Clinical Impression: Dog bite Disposition: HOME SELF-CARE Condition: Good Instructions: Animal Bite (ED) Additional Instructions: Please use medication as discussed. Please follow-up with orthopedic/family doctor in the next 2 days of symptoms have not improved. Please return to emergency room if the symptoms increase or worsen or for any other concerns. Prescriptions: Amoxicillin/Potassium Clav [Augmentin 875-125 Tablet] 1 each PO Q12HR #20 tab Naproxen [Naprosyn] 500 mg PO BID #20 tablet Is patient prescribed a controlled substance at d/c from ED?: No Referrals: None,Stated [Primary Care Provider] - 1-2 days Naldo Orellana MD [STAFF PHYSICIAN] - 1-2 days Time of Disposition: 14:30
[2018-01-19 13:34] VITALS: RESP 18
[2018-01-19 13:58] LABS: Basophils # (A) 0.1 k/uL (0-0.2); Basophils % (A) 0 %; Eosinophils # (A) 0.2 k/uL (0-0.7); Eosinophils % (A) 1 %; HCT 44.4 % (39.0-53.0); HGB 14.9 gm/dL (13.0-17.5); Lymphocytes # (A) 1.1 k/uL (1.0-4.8); Lymphocytes % (A) 7 %; MCH 31.2 pg (25.0-35.0); MCHC 33.5 g/dL (31.0-37.0); MCV 93.2 fL (80.0-100.0); Mean Platelet Volume 7.1; Monocytes # (A) 0.8 k/uL (0-1.0); Monocytes % (A) 4 %; Neutrophils # (A) 14.7 k/uL (1.3-7.7); Neutrophils % (A) 87 %; Platelet Count 266 k/uL (150-450); RBC 4.77 m/uL (4.30-5.90); RDW 13.3 % (11.5-15.5); WBC 16.9 k/uL (3.8-10.6)
[2018-01-19 14:08] LABS: Anion Gap 10 mmol/L; Blood Urea Nitrogen 20 mg/dL (9-20); Calcium 9.5 mg/dL (8.4-10.2); Carbon Dioxide 21 mmol/L (22-30); Chloride 107 mmol/L (98-107); Glucose 98 mg/dL (74-99); Potassium 4.5 mmol/L (3.5-5.1); Sodium 138 mmol/L (137-145)
[2018-01-19 14:54] VITALS: BP 113/62; PULSE 92; TEMP 97.9
== END 2018-01-19 14:52 | disposition home or self-care (01) ==
LOC: EC 10:26
DX: S61.451A Open bite of right hand, initial encounter (principal); F17.200 Nicotine dependence, unspecified, uncomplicated; Z23 Encounter for immunization; W54.0XXA Bitten by dog, initial encounter
CPT/HCPCS: 36415; 80048; 83605; 85025; 87040; 73130; 90715; 99283; 96365; 96375; 90471; J1885; J0295

== ENCOUNTER 2022-02-08 02:56 | Emergency (ER) | payer OTHER ==
[2022-02-08 03:00] VITALS: TEMP 97.9
--- NOTE | 2022-02-08 03:18 | ED ---
Chest Pain HPI - General Chief Complaint: Chest Pain Stated Complaint: Chest pain Time Seen by Provider: 02/08/22 03:02 Source: patient, RN notes reviewed, old records reviewed Mode of arrival: wheelchair Limitations: no limitations - History of Present Illness Initial Comments: This is a 38-year-old male DF for evaluation today. Patient Dese for evaluation of what he feels like his heartburn but worse. Epigastric abdominal pain positive nausea no vomiting. Symptoms began after dinner but woke him up from significant tonight much worse. No travel history no sick contacts no other significant complaints. Patient is without fever. No trauma. Patient states he had a normal day yesterday without complaint. He states he has been hospital for chest pain or heart pain before this is not what this feels like. MD Complaint: chest pain, other (More epigastric abdominal and right upper quadrant abdominal pain) -: hour(s) Onset: during rest, during exertion, after eating, awoke with symptoms Pain Location: substernal Pain Radiation: none Severity: moderate Severity scale (1-10): 4 Quality: sharp Consistency: constant Improves With: nothing Worsens With: nothing Anginal Symptoms: nausea Other Symptoms: acid taste in mouth Treatments Prior to Arrival: none - Related Data Previous Rx's Medication Instructions Recorded Amoxicillin/Potassium Clav 1 each PO Q12HR #20 tab 01/19/18 [Augmentin 875-125 Tablet] Naproxen [Naprosyn] 500 mg PO BID #20 tablet 01/19/18 Allergies Allergy/AdvReac Type Severity Reaction Status Date / Time No Known Allergies Allergy Verified 02/08/22 02:59 Review of Systems ROS Statement: Those systems with pertinent positive or pertinent negative responses have been documented in the HPI. ROS Other: All systems not noted in ROS Statement are negative. 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, SHINGLES 2011 History of Any Multi-Drug Resistant Organisms: None Reported Past Surgical History: Tonsillectomy Additional Past Surgical History / Comment(s): BULGING DISC AND TEAR Past Anesthesia/Blood Transfusion Reactions: No Reported Reaction Past Psychological History: No Psychological Hx Reported Smoking Status: Current every day smoker Past Alcohol Use History: None Reported Past Drug Use History: Marijuana - Past Family History Mother Family Medical History: Diabetes Mellitus Additional Family Medical History / Comment(s): HEART DISEASE Father Family Medical History: Diabetes Mellitus General Exam Limitations: no limitations General appearance: alert, in no apparent distress Head exam: Present: atraumatic, normocephalic, normal inspection Eye exam: Present: normal appearance, PERRL, EOMI. Absent: scleral icterus, conjunctival injection, periorbital swelling ENT exam: Present: normal exam, mucous membranes moist Neck exam: Present: normal inspection. Absent: tenderness, meningismus, lymphadenopathy Respiratory exam: Present: normal lung sounds bilaterally. Absent: respiratory distress, wheezes, rales, rhonchi, stridor Cardiovascular Exam: Present: regular rate, normal rhythm, normal heart sounds. Absent: systolic murmur, diastolic murmur, rubs, gallop, clicks GI/Abdominal exam: Present: soft, normal bowel sounds. Absent: distended, tenderness, guarding, rebound, rigid Extremities exam: Present: normal inspection, full ROM, normal capillary refill. Absent: tenderness, pedal edema, joint swelling, calf tenderness Back exam: Present: normal inspection Neurological exam: Present: alert, oriented X3, CN II-XII intact Psychiatric exam: Present: normal affect, normal mood Skin exam: Present: warm, dry, intact, normal color. Absent: rash Course Vital Signs 02/08/22 02/08/22 02/08/22 02:57 04:14 06:13 Temperature 97.9 F 97.9 F Pulse Rate 106 H 82 92 Respiratory 18 18 16 Rate Blood Pressure 141/80 156/87 133/87 O2 Sat by Pulse 100 100 Oximetry - Reevaluation(s) Reevaluation #1: 02/08/22 04:18 Medical record is reviewed Chest Pain MDM - MDM 46 male to the emergency department for evaluation patient Dese for evaluation of chest pain gastritis possible ulcer. Patient symptoms improved here in the ER and can be discharged home Disposition Clinical Impression: Atypical chest pain, Chest pain, Abdominal pain, Gastritis Disposition: HOME SELF-CARE Condition: Good Instructions (If sedation given, give patient instructions): Chest Pain (ED), Abdominal Pain (ED) Is patient prescribed a controlled substance at d/c from ED?: No Referrals: None,Stated [Primary Care Provider] - 1-2 days Time of Disposition: 05:20
[2022-02-08 03:48] LABS: Basophils # (A) 0.1 k/uL (0-0.2); Basophils % (A) 1 %; Eosinophils # (A) 0.2 k/uL (0-0.7); Eosinophils % (A) 4 %; HCT 40.6 % (39.0-53.0); HGB 14.4 gm/dL (13.0-17.5); Lymphocytes # (A) 0.3 k/uL (1.0-4.8); Lymphocytes % (A) 5 %; MCH 32.4 pg (25.0-35.0); MCHC 35.4 g/dL (31.0-37.0); MCV 91.5 fL (80.0-100.0); Mean Platelet Volume 7.7; Monocytes # (A) 0.5 k/uL (0-1.0); Monocytes % (A) 8 %; Neutrophils # (A) 5.3 k/uL (1.3-7.7); Neutrophils % (A) 82 %; Platelet Count 219 k/uL (150-450); RBC 4.44 m/uL (4.30-5.90); RDW 11.8 % (11.5-15.5); WBC 6.5 k/uL (3.8-10.6)
[2022-02-08] MEDS ORDERED: MORPHINE SULFATE 4 MG/ML SYRINGE IVP STA (03:55)
[2022-02-08] MEDS ORDERED: ONDANSETRON 4 MG/2 ML VIAL IVP STA (03:55)
[2022-02-08] MEDS ORDERED: PANTOPRAZOLE 40 MG/10 ML VIAL IVP STA (03:55)
[2022-02-08 03:57] LABS: ALT 23 U/L (4-49); AST 26 U/L (17-59); African American GFR (CKD) >90 (>60 ml/min/1.73 sqM); Albumin 4.2 g/dL (3.5-5.0); Alkaline Phosphatase 55 U/L (38-126); Anion Gap 7 mmol/L; Blood Urea Nitrogen 10 mg/dL (9-20); Calcium 9.1 mg/dL (8.4-10.2); Carbon Dioxide 27 mmol/L (22-30); Chloride 106 mmol/L (98-107); Glucose 92 mg/dL (74-99); Lipase 100 U/L (23-300); Magnesium 1.9 mg/dL (1.6-2.3); Non-African American GFR(CKD) 79 (>60 ml/min/1.73 sqM); Potassium 4.1 mmol/L (3.5-5.1); Sodium 140 mmol/L (137-145); Total Bilirubin 0.3 mg/dL (0.2-1.3); Total Protein 6.5 g/dL (6.3-8.2)
--- NOTE | 2022-02-08 04:01 | XR ---
EXAMINATION TYPE: XR chest 1V portable DATE OF EXAM: 02/08/2022 COMPARISON: 04/01/2017 HISTORY: Chest pain TECHNIQUE: Single view FINDINGS: Heart is normal. Lungs are clear. Diaphragm is normal. Bony thorax appears normal. IMPRESSION: Normal chest. No change.
[2022-02-08 04:30] LABS: INR 0.9 (<1.2); Partial Thromboplastin Time 24.4 sec (22.0-30.0); Prothrombin Time 9.8 sec (9.0-12.0)
--- NOTE | 2022-02-08 05:04 | CT ---
EXAMINATION TYPE: CT abdomen pelvis w con DATE OF EXAM: 02/08/2022 COMPARISON: None HISTORY: epigastric pain CT DLP: 715.3 mGycm Automated exposure control for dose reduction was used. CONTRAST: Performed with IV Contrast, patient injected with 100 mL of Isovue 300. Images obtained from the diaphragm to the floor the pelvis with the IV contrast. The lung bases are clear. No pleural effusion. Heart size is normal. No pericardial effusion. Liver spleen and stomach pancreas and gallbladder appear intact. The bile ducts are not dilated. There is no adrenal mass. Kidneys have normal size and contour. No hydronephrosis. There is normal co ntrast opacification of the kidneys. Ureters are not dilated. Bladder distends smoothly. No retroperi toneal adenopathy. Appendix is posterior and medial and appears normal. No inguinal hernia. No eviden ce of pelvic mass. There is no free fluid in the pelvis. There is no mesenteric edema. No ascites or free air. No sign of a bowel obstruction. Delayed images show normal renal excretion. The lumbar vertebrae have normal alignment. There is vacuum disc at L5-S1. Vertebra show no compressi on fracture. Bony pelvis is intact. Sacroiliac joints appear normal. Hip joints are intact. IMPRESSION: Normal appendix. No acute abnormality of the abdomen and pelvis.
[2022-02-08] MEDS ORDERED: MAG HYDROX/AL HYDROX/SIMETH 30 ML, HYOSCYAMINE ELIXIR 10 ML, LIDOCAINE VISCOUS 2% 10 ML PO STA ×3 (05:16)
[2022-02-08 06:15] VITALS: BP 133/87; PULSE 92; RESP 16
== END 2022-02-08 06:15 | disposition home or self-care (01) ==
LOC: EC 02:56
DX: R07.89 Other chest pain (principal); K29.70 Gastritis, unspecified, without bleeding; F17.200 Nicotine dependence, unspecified, uncomplicated; F12.90 Cannabis use, unspecified, uncomplicated
CPT/HCPCS: 36415; 93005; 83880; 80053; 83690; 83735; 84484; 85025; 85610; 85730; 71045; 74177; 99285; 96374; 96375 ×2; J2270; J2405; C9113; Q9967

== ENCOUNTER → 2023-06-17 | Outpatient (CLI) | payer OTHER ==
--- NOTE | 2023-06-17 15:10 | US ---
EXAMINATION TYPE: US carotid duplex BILAT DATE OF EXAM: 06/17/2023 COMPARISON: NONE CLINICAL INDICATION: Male, 48 years old with history of R55 SYNCOPE AND COLLAPSE; Syncope TECHNIQUE: Carotid duplex ultrasound examination. Indirect Doppler criteria was utilized. FINDINGS: EXAM MEASUREMENTS: RIGHT: Peak Systolic Velocity (PSV) cm/sec ----- Right CCA: 138 ----- Right ICA: 123 ----- Right ECA: 190 ICA/CCA ratio: 0.9 RIGHT: End Diastole cm/sec ----- Right CCA: 42.0 ----- Right ICA: 42.0 ----- Right ECA: 38.1 LEFT: Peak Systolic Velocity (PSV) cm/sec ----- Left CCA: 159 ----- Left ICA: 96.0 ----- Left ECA: 242 ICA/CCA ratio: 0.6 LEFT: End Diastole cm/sec ----- Left CCA: 39.8 ----- Left ICA: 40.2 ----- Left ECA: 39.0 VERTEBRALS (direction of flow): Right Vertebral: Antegrade Left Vertebral: Antegrade Rhythm: Normal HEAVY EQUIPMENT OPERATOR NOTES: Soft plaque bilaterally with elevated velocities bilateral ECA's, higher on left side IMPRESSION: 1. Mild scattered plaque within the carotid bifurcations bilaterally, right greater than left. Based on color and grayscale imaging, there is a mild stenosis. 2. No lateral hemodynamically significant stenosis based on peak systolic velocities and ratios Criteria for Assigning % of Stenosis / Diameter reduction (Estimation based on the indirect measurements of the internal carotid artery velocities (ICA PSV). 1. Normal (no stenosis)=ICA PSV < 125 cm/s: ratio < 2.0: ICA EDV<40 cm/s. 2. Less than 50% stenosis=ICA PSV < 125 cm/s: ratio < 2.0: ICA EDV<40 cm/s. 3. 50 to 69% stenosis=ICA PSV of 125 to 230 cm/s: ration 2.0 ? 4.0: ICA EDV 40-100 cm/s. 4. Greater than 70% stenosis to near occlusion= ICA PSV > 230 cm/s: ratio > 4.0: ICA EDV > 100 cm/s. 5. Near occlusion= ICA PSV velocities may be low or undetectable: variable ratio and ICA EDV. 6. Total occlusion=unable to detect flow.
== END | disposition home or self-care (01) ==
LOC: RADUSWWP 08:36
PROVIDERS: ATTEND Family Medicine
DX: I65.23 Occlusion and stenosis of bilateral carotid arteries (principal); R55 Syncope and collapse
CPT/HCPCS: 93880

== ENCOUNTER 2023-09-25 14:39 | Emergency (ER) | payer OTHER ==
[2023-09-25] MEDS ORDERED: PROPARACAINE 0.5% OPHTH DROPS 15 ML BTL ONE (15:30)
[2023-09-25] MEDS ORDERED: FLUORESCEIN STRIPS 1 MG STRIP ONE (15:30)
[2023-09-25] MEDS ORDERED: TOBRAMYCIN 0.3% OPHTH DROPS 5 ML BTL ONE (16:00)
== END 2023-09-25 16:12 | disposition home or self-care (01) ==
LOC: EC 14:39
CPT/HCPCS: 99283

== ENCOUNTER 2024-06-28 04:45 | Observation (INO) | payer OTHER ==
--- NOTE | 2024-06-28 05:09 | ED ---
General Adult HPI - General Chief complaint: Chest Pain Stated complaint: Chest Pain Time Seen by Provider: 06/28/24 04:48 Source: patient, RN notes reviewed, old records reviewed Mode of arrival: wheelchair - History of Present Illness Initial comments: 49-year-old male presenting for evaluation of substernal chest discomfort. Symptoms began approximately 1 hour ago. Patient reports radiation to the bilateral upper shoulders. No associated vomiting or diaphoresis. Patient is a current smoker and does report a chronic smoker's cough. No lower extremity pain or swelling. No abdominal pain. No prior history of CAD. - Related Data Previous Rx's Medication Instructions Recorded Amoxicillin/Potassium Clav 1 each PO Q12HR #20 tab 01/19/18 [Augmentin 875-125 Tablet] Naproxen [Naprosyn] 500 mg PO BID #20 tablet 01/19/18 Allergies Allergy/AdvReac Type Severity Reaction Status Date / Time No Known Allergies Allergy Verified 06/28/24 05:00 Review of Systems ROS Statement: Those systems with pertinent positive or pertinent negative responses have been documented in the HPI. ROS Other: All systems not noted in ROS Statement are negative. 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, SHINGLES 2011 History of Any Multi-Drug Resistant Organisms: None Reported Past Surgical History: Tonsillectomy Additional Past Surgical History / Comment(s): BULGING DISC AND TEAR Past Anesthesia/Blood Transfusion Reactions: No Reported Reaction Past Psychological History: No Psychological Hx Reported Smoking Status: Current every day smoker Past Alcohol Use History: None Reported Past Drug Use History: Marijuana - Past Family History Mother Family Medical History: Diabetes Mellitus Additional Family Medical History / Comment(s): HEART DISEASE Father Family Medical History: Diabetes Mellitus General Exam General appearance: alert, in no apparent distress Head exam: Present: atraumatic, normocephalic Eye exam: Present: normal appearance, PERRL ENT exam: Present: normal exam Neck exam: Present: normal inspection. Absent: tenderness, meningismus Respiratory exam: Present: normal lung sounds bilaterally. Absent: respiratory distress, wheezes Cardiovascular Exam: Present: regular rate, normal rhythm GI/Abdominal exam: Present: soft. Absent: distended, tenderness, guarding Extremities exam: Present: normal inspection Neurological exam: Present: alert, oriented X3, CN II-XII intact. Absent: motor sensory deficit Psychiatric exam: Present: normal affect, normal mood Skin exam: Present: warm, dry, intact. Absent: cyanosis, diaphoretic Course Vital Signs 06/28/24 04:52 Temperature 98.5 F Pulse Rate 89 Respiratory 20 Rate Blood Pressure 140/86 O2 Sat by Pulse 96 Oximetry Medical Decision Making - Medical Decision Making Was pt. sent in by a medical professional or institution (NIMISHA Yusuf, SOFTWARE PROGRAMMER, urgent care, hospital, or custodial...) When possible be specific @ -No Did you speak to anyone other than the patient for history (EMS, parent, family, police, friend...)? What history was obtained from this source @ -No Did you review nursing and triage notes (agree or disagree)? Why? @ -I reviewed and agree with nursing and triage notes Were old charts reviewed (outside hosp., previous admission, EMS record, old EKG, old radiological studies, urgent care reports/EKG's, custodial records)? Report findings @ -No old charts were reviewed Differential Chest Pain: Stable Angina, Unstable Angina, STEMI, NSTEMI Aortic Dissection, Pneumothorax, Musculoskeletal, Esophageal Spasm GERD, Cholecystitis, Pancreatitis, Zoster, this is not meant to be an all-inclusive list. EKG interpreted by me (3pts min.). @ -EKG: Sinus rhythm rate of 80, NE interval 163, QRS duration 91, QTc 377 X-rays interpreted by me (1pt min.). @Chest x-ray is negative for acute cardiopulmonary findings CT interpreted by me (1pt min.). @ -None done U/S interpreted by me (1pt. min.). @ -None done What testing was considered but not performed or refused? (CT, X-rays, U/S, labs)? Why? @ -None What meds were considered but not given or refused? Why? @ -None Did you discuss the management of the patient with other professionals (professionals i.e. NIMISHA Yusuf, SOFTWARE PROGRAMMER, lab, RT, psych nurse, cattle alley worker, secretary specialist, teacher, chief privacy officer, case mgr)? Give summary @ - EM[facility] Was smoking cessation discussed for >3mins.? @ -No Was critical care preformed (if so, how long)? @ -No Were there social determinants of health that impacted care today? How? (Homelessness, low income, unemployed, alcoholism, drug addiction, t ransportation, low edu. Level, literacy, decrease access to med. care, alf, rehab)? @ -No Was there de-escalation of care discussed even if they declined (Discuss DNR or withdrawal of care, Hospice)? DNR status @ -No What co-morbidities impacted this encounter? (DM, HTN, Smoking, COPD, CAD, Cance r, CVA, ARF, Chemo, Hep., AIDS, mental health diagnosis, sleep apnea, morbid obesity)? @ -Tobacco use Was patient admitted / discharged? Hospital course, mention meds given and route, prescriptions, significant lab abnormalities, going to OR and other pertinent info. @ -49-year-old male with chest pressure, chest pain radiating to bilateral shoulders. EKG is sinus without ST segment changes. Chest x-ray is clear. He has a normal CBC, normal CMP, negative D-dimer, negative initial troponin. Patient will be observed for serial cardiac enzymes, telemetry, cardiology consultation. Undiagnosed new problem with uncertain prognosis? @ -No Drug Therapy requiring intensive monitoring for toxicity (Heparin, Nitro, Insulin, Cardizem)? @ -No Were any procedures done? @ -No Diagnosis/symptom? @Chest pain Acute, or Chronic, or Acute on Chronic? @Acute Uncomplicated (without systemic symptoms) or Complicated (systemic symptoms)? @ -Default Side effects of treatment? @ -No Exacerbation, Progression, or Severe Exacerbation? @ -No Poses a threat to life or bodily function? How? (Chest pain, USA, ID, pneumonia, PE, COPD, DKA, ARF, appy, cholecystitis, CVA, Diverticulitis, Homicidal, Su[place] an[place], threat to staff... and all critical care pts) @ -Yes, ACS - Lab Data Result diagrams: 06/28/24 05:27 06/28/24 05:27 Lab Results 06/28/24 06/28/24 06/28/24 Range/Units 05:27 05:27 05:27 WBC 9.39 (4.50-10.00) 10*3/uL RBC 4.65 (4.40-5.60) 10*6/uL Hgb 14.8 (13.0-17.0) g/dL Hct 42.0 (39.6-50.0) % MCV 90.3 (80.0-97.0) fL MCH 31.8 (27.0-32.0) pg MCHC 35.2 (32.0-37.0) g/dL Plt Count 284 (140-440) 10*3/uL MPV 9.2 L (9.5-12.2) fL Immature Gran % (Auto) 0.2 % Neutrophils % 50.4 % Lymphocytes % 34.4 % Monocytes % 9.1 % Eosinophils % 4.7 % Basophils % 1.2 % Immature Gran # 0.02 (0.00-0.04) 10*3/uL Neutrophils # 4.74 (1.80-7.70) 10*3/uL Lymphocytes # 3.23 (0.90-5.00) 10*3/uL Monocytes # 0.85 (0.20-1.00) 10*3/uL Eosinophils # 0.44 H (0.04-0.35) 10*3/uL Basophils # 0.11 H (0.00-0.10) 10*3/uL PT 10.0 (10.0-12.5) sec INR 0.9 (<1.2) APTT 24.9 (22.0-30.0) sec D-Dimer 0.23 (<0.60) mg/L FEU Sodium 138 (137-145) mmol/L Potassium 3.8 (3.5-5.1) mmol/L Chloride 104 (98-107) mmol/L Carbon Dioxide 25 (22-30) mmol/L Anion Gap 9 mmol/L BUN 19 (9-20) mg/dL Creatinine 1.11 (0.66-1.25) mg/dL Est GFR (CKD-EPI)AfAm 89 (>60 ml/min/1.73 sqM) Est GFR (CKD-EPI)NonAf 77 (>60 ml/min/1.73 sqM) Glucose 101 H (74-99) mg/dL Calcium 9.8 (8.4-10.2) mg/dL Magnesium 2.1 (1.6-2.3) mg/dL Total Bilirubin 0.5 (0.2-1.3) mg/dL AST 27 (17-59) U/L ALT 26 (4-49) U/L Alkaline Phosphatase 74 (38-126) U/L Troponin I (0.000-0.034) ng/mL Total Protein 7.2 (6.3-8.2) g/dL Albumin 4.4 (3.5-5.0) g/dL 06/28/24 Range/Units 05:27 WBC (4.50-10.00) 10*3/uL RBC (4.40-5.60) 10*6/uL Hgb (13.0-17.0) g/dL Hct (39.6-50.0) % MCV (80.0-97.0) fL MCH (27.0-32.0) pg MCHC (32.0-37.0) g/dL Plt Count (140-440) 10*3/uL MPV (9.5-12.2) fL Immature Gran % (Auto) % Neutrophils % % Lymphocytes % % Monocytes % % Eosinophils % % Basophils % % Immature Gran # (0.00-0.04) 10*3/uL Neutrophils # (1.80-7.70) 10*3/uL Lymphocytes # (0.90-5.00) 10*3/uL Monocytes # (0.20-1.00) 10*3/uL Eosinophils # (0.04-0.35) 10*3/uL Basophils # (0.00-0.10) 10*3/uL PT (10.0-12.5) sec INR (<1.2) APTT (22.0-30.0) sec D-Dimer (<0.60) mg/L FEU Sodium (137-145) mmol/L Potassium (3.5-5.1) mmol/L Chloride (98-107) mmol/L Carbon Dioxide (22-30) mmol/L Anion Gap mmol/L BUN (9-20) mg/dL Creatinine (0.66-1.25) mg/dL Est GFR (CKD-EPI)AfAm (>60 ml/min/1.73 sqM) Est GFR (CKD-EPI)NonAf (>60 ml/min/1.73 sqM) Glucose (74-99) mg/dL Calcium (8.4-10.2) mg/dL Magnesium (1.6-2.3) mg/dL Total Bilirubin (0.2-1.3) mg/dL AST (17-59) U/L ALT (4-49) U/L Alkaline Phosphatase (38-126) U/L Troponin I <0.012 (0.000-0.034) ng/mL Total Protein (6.3-8.2) g/dL Albumin (3.5-5.0) g/dL Disposition Clinical Impression: Chest pain Disposition: ADMITTED IP TO THIS HOSP Condition: Stable Is patient prescribed a controlled substance at d/c from ED?: No Referrals: Marcella Maldonado DO [Primary Care Provider] - 1-2 days Time of Disposition: 06:10
[2024-06-28 05:37] LABS: Basophils # (A) 0.11 10*3/uL (0.00-0.10); Basophils % (A) 1.2 %; Eosinophils # (A) 0.44 10*3/uL (0.04-0.35); Eosinophils % (A) 4.7 %; HGB 14.8 g/dL (13.0-17.0); Lymphocytes # (A) 3.23 10*3/uL (0.90-5.00); Lymphocytes % (A) 34.4 %; MCH 31.8 pg (27.0-32.0); MCHC 35.2 g/dL (32.0-37.0); MCV 90.3 fL (80.0-97.0); Mean Platelet Volume 9.2 fL (9.5-12.2); Monocytes # (A) 0.85 10*3/uL (0.20-1.00); Monocytes % (A) 9.1 %; Neutrophils # (A) 4.74 10*3/uL (1.80-7.70); Neutrophils % (A) 50.4 %; Platelet Count 284 10*3/uL (140-440); RBC 4.65 10*6/uL (4.40-5.60); RDW 12.2 % (11.5-14.5); WBC 9.39 10*3/uL (4.50-10.00)
[2024-06-28 05:52] LABS: ALT 26 U/L (4-49); AST 27 U/L (17-59); African American GFR (CKD) 89 (>60 ml/min/1.73 sqM); Albumin 4.4 g/dL (3.5-5.0); Alkaline Phosphatase 74 U/L (38-126); Anion Gap 9 mmol/L; Blood Urea Nitrogen 19 mg/dL (9-20); Calcium 9.8 mg/dL (8.4-10.2); Carbon Dioxide 25 mmol/L (22-30); Chloride 104 mmol/L (98-107); Glucose 101 mg/dL (74-99); Magnesium 2.1 mg/dL (1.6-2.3); Non-African American GFR(CKD) 77 (>60 ml/min/1.73 sqM); Potassium 3.8 mmol/L (3.5-5.1); Sodium 138 mmol/L (137-145); Total Bilirubin 0.5 mg/dL (0.2-1.3); Total Protein 7.2 g/dL (6.3-8.2)
[2024-06-28 05:54] LABS: INR 0.9 (<1.2); Partial Thromboplastin Time 24.9 sec (22.0-30.0)
[2024-06-28] MEDS ORDERED: NALOXONE 0.4 MG/ML 1 ML VIAL IV PRN (06:07)
[2024-06-28] MEDS ORDERED: MORPHINE SULFATE 4 MG/ML SYRINGE IV PRN (06:07)
[2024-06-28] MEDS ORDERED: ONDANSETRON 4 MG/2 ML VIAL IVP PRN (06:07)
[2024-06-28] MEDS ORDERED: ACETAMINOPHEN TAB 325 MG TAB PO PRN (06:07)
[2024-06-28] MEDS: ASPIRIN 325 MG TAB PO STA (06:12)
--- NOTE | 2024-06-28 06:24 | XR ---
EXAMINATION TYPE: XR chest 2V DATE OF EXAM: 06/28/2024 CLINICAL INDICATION: Male, 49 years old with history of Chest Pain, TECHNIQUE: Frontal and lateral views of the chest are obtained. COMPARISON: Chest x-ray February 08, 2022 FINDINGS: Underlying emphysematous change is thought present. Overlying EKG leads are redemonstrated . There is no focal air space opacity, pleural effusion, or pneumothorax seen. The cardiac silhouett e size is stable and within normal limits. The osseous structures are intact. IMPRESSION: Chronic emphysematous changes without acute pulmonary process. [facility], , 06/28/2024 6:22 AM
[2024-06-28] MEDS ORDERED: DOBUTamine DRIP for NUC MED 500 MG/250 ML BAG IV ONE (08:00)
[2024-06-28] MEDS ORDERED: DOBUTamine DRIP for NUC MED 500 MG in DEXTROSE/WATER 1 250ML.BAG IV PRN (10:01)
--- NOTE | 2024-06-28 10:49 | P.CRDCN ---
History of Present Illness History of present illness: HISTORY OF PRESENTING ILLNESS This is a pleasant 49-year-old male past medical history significant for chronic nicotine dependence and hyperlipidemia. He follows in the office with Dr. Huang. We have been asked to see in consultation for chest pain. He states he spent all day yesterday working around the house. He did do some heavy lifting and moving of furniture but nothing particularly out of the ordinary for him. He woke up around 4 AM with chest discomfort. The pain was described as a heavy pressure sensation. The intensity subsided but but he still has some mild chest discomfort. Not worse with breathing or movement of his torso. EKG unremarkable for any acute ST or T wave abnormalities. Chest x- ray with chronic emphysema attic changes with no acute cardiopulmonary process. Laboratory data reviewed, D-dimer 0.23, sodium 138, potassium 3.8, creatinine 1.1, cardiac enzymes negative x 2, hemoglobin 14.8 and platelets 284. He takes no daily cardiac medications. In October 2023 he underwent a treadmill exercise stress test in the office, walked for 6 minutes and 16 seconds and achieved 88% of his target heart rate. He had no symptoms of angina during the test however he had upsloping ST changes making the stress test mildly positive. We attempted to contact the patient to order a different modality of stress testing however he never followed up. REVIEW OF SYSTEMS At the time of my exam: CONSTITUTIONAL: Denies fever or chills. CARDIOVASCULAR: Complains of chest pain. Denies shortness of breath, orthopnea, PND or palpitations. RESPIRATORY: Denies cough. GASTROINTESTINAL: Denies abdominal pain, diarrhea, constipation, nausea or vomit ing. MUSCULOSKELETAL: Denies myalgias. NEUROLOGIC: Denies numbness, tingling, headache or weakness. ENDOCRINE: Denies fatigue, weight change, polydipsia or polyurina. GENITOURINARY: Denies burning, hematuria or urgency with micturation. HEMATOLOGIC: Denies history of anemia or bleeding. PHYSICAL EXAMINATION Blood pressure 132/79 heart rate 70 afebrile and maintaining oxygen saturation on room air. CONSTITUTIONAL: No apparent distress. HEENT: Head is normocephalic. Pupils are equal, round. Sclerae anicteric. Mucous membranes of the mouth are moist. No JVD. No carotid bruit. CHEST EXAMINATION: Lungs are clear to auscultation. No chest wall tenderness is noted on palpation or with deep breathing. HEART EXAMINATION: Regular rate and rhythm. S1, S2 heard. No murmurs, gallops or rub. ABDOMEN: Soft, nontender. EXTREMITIES: 2+ peripheral pulses, no lower extremity edema and no calf tender ness. NEUROLOGIC EXAMINATION: Patient is awake, alert and oriented x3. ASSESSMENT Chest pain, atypical Chronic nicotine dependence Likely underlying COPD PLAN An acute coronary event has been ruled out. Perform dobutamine stress echocardiogram this morning. If normal he may be discharged home to follow-up in the office with Dr. Huang. Thank you kindly for this consultation. Nurse Practitioner note has been reviewed, I agree with a documented findings and plan of care. Patient was seen and examined. 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 PT'S DAUGHTER LIVES WITH HIM. NO SERVICE IN BACKGROUND. PT STATED HE HAS'NT BEEN TO A DR IN 10 YEARS. Smoking Status: Current every day smoker Past Alcohol Use History: None Reported Additional Past Alcohol Use History / Comment(s): STARTED SMOKING AT AGE 13, SMOKES 1 PPD, SMOKING INFO GIVEN TO PT. Past Drug Use History: Marijuana - Past Family History Mother Family Medical History: Diabetes Mellitus Additional Family Medical History / Comment(s): HEART DISEASE Father Family Medical History: Diabetes Mellitus Medications and Allergies Home Medications Medication Instructions Recorded Confirmed Type No Known Home Medications 06/28/24 06/28/24 History Allergies Allergy/AdvReac Type Severity Reaction Status Date / Time No Known Allergies Allergy Verified 06/28/24 07:24 Physical Exam Vitals: Vital Signs Temp Pulse Pulse Resp BP BP Pulse Ox 06/28/24 07:58 97.7 F 70 18 132/79 99 06/28/24 07:55 98.1 F 90 18 132/78 96 06/28/24 04:52 98.5 F 89 20 140/86 96 Intake and Output 06/27/24 06/28/24 06/28/24 22:59 06:59 14:59 Other: Weight 74.843 kg 74.843 kg Results 06/28/24 05:27 06/28/24 05:27 Cardiac Enzymes 06/28/24 06/28/24 06/28/24 Range/Units 05:27 05:27 09:11 AST 27 (17-59) U/L Troponin I <0.012 <0.012 (0.000-0.034) ng/mL Coagulation 06/28/24 Range/Units 05:27 PT 10.0 (10.0-12.5) sec APTT 24.9 (22.0-30.0) sec CBC 06/28/24 Range/Units 05:27 WBC 9.39 (4.50-10.00) 10*3/uL RBC 4.65 (4.40-5.60) 10*6/uL Hgb 14.8 (13.0-17.0) g/dL Hct 42.0 (39.6-50.0) % Plt Count 284 (140-440) 10*3/uL Comprehensive Metabolic Panel 06/28/24 Range/Units 05:27 Sodium 138 (137-145) mmol/L Potassium 3.8 (3.5-5.1) mmol/L Chloride 104 (98-107) mmol/L Carbon Dioxide 25 (22-30) mmol/L BUN 19 (9-20) mg/dL Creatinine 1.11 (0.66-1.25) mg/dL Glucose 101 H (74-99) mg/dL Calcium 9.8 (8.4-10.2) mg/dL AST 27 (17-59) U/L ALT 26 (4-49) U/L Alkaline Phosphatase 74 (38-126) U/L Total Protein 7.2 (6.3-8.2) g/dL Albumin 4.4 (3.5-5.0) g/dL Current Medications Generic Name Dose Route Start Last Admin Trade Name Freq PRN Reason Stop Dose Admin Acetaminophen 650 mg 06/28/24 06:07 Acetaminophen Tab 325 Mg Tab PO Q6HR PRN Mild Pain or Fever > 100.5 Dobutamine HCl/Dextrose 500 mg 250 mls @ 22.453 mls/hr 06/28/24 10:01 / IV Solution IV 06/28/24 14:01 .[id number] PRN Per Protocol Protocol 10 MCG/KG/MIN Morphine Sulfate 4 mg 06/28/24 06:07 Morphine Sulfate 4 Mg/Ml Syringe IV Q4HR PRN Severe Pain (Scale 7 to 10) Naloxone HCl 0.2 mg 06/28/24 06:07 Naloxone 0.4 Mg/Ml 1 Ml Vial IV Q2M PRN Opioid Reversal Ondansetron HCl 4 mg 06/28/24 06:07 Ondansetron 4 Mg/2 Ml Vial IVP Q8HR PRN Nausea And Vomiting Intake and Output 06/27/24 06/28/24 06/28/24 22:59 06:59 14:59 Other: Weight 74.843 kg 74.843 kg Patient Weight 06/29/24 06:59 Weight 74.843 kg 06/28/24 05:27 06/28/24 05:27
[2024-06-28] MEDS ORDERED: ATROPINE SULFATE 0.1 MG/ML 10ML SYRINGE ONE (10:58)
--- NOTE | 2024-06-28 12:52 | CA ---
Dobutamine Stress Echocardiogram Report Omar Lange Age: 49 Gender: M : 1975 Exam Date: 06/28/2024 10:54 Exam Location: [facility] Ordering Physician: Jada Streeter Referring Physician: Syl ALAS Accounts Payables Clerk: CHILANGO Technologist: Ht (in): 68 Wt (lb): 165 Procedure CPT: Indication: CP ICD-9 Codes: Rhythm: Patient History: CHEST PAIN, ANGINA, CURRENT SMOKER 1 PPD X 25 YEARS, RHEUMATIC FEVER Cardiac Medications: Medications in past 24 hours: Contrast: Total Dose (mL): Stress Results Protocol: Dobutamine Peak Dose (???g/kg/min): 40 Duration (min:sec): Atropine:(mg) 0.5 Target HR: 144 Double Product: [id number] Resting HR: 71 Resting BP: 143 / 73 Peak HR: 142 Peak BP: 178 / 53 Max Predicted HR: 169 84 % Max Predicted HR Stress Summary: BP Response: Reason for Termination: DIRECTED PER AS400 ADMINISTRATOR Cardiac Symptoms: NO SYMPTOMS ECG Analysis Resting EKG: Stress EKG: Arrhythmia: Echo Analysis Base Echo Analysis: Low Echo Anaylsis: Peak Echo Analysis: Recovery Echo: MEASUREMENTS (Male/Female) Normal Values CONCLUSIONS Baseline EKG revealed normal sinus rhythm without significant ST or T wave changes. Patient was administered dobutamine as per protocol and the heart rate went up from 71 to 142 bpm almost 85% of predicted maximal no significant symptoms no significant arrhythmia slightly more prominent ST-T changes at peak exercise but resting EKG borderline voltage criteria for LVH. This is technically an inconclusive dobutamine stress test by EKG criteria Baseline echo images revealed normal wall motion and wall thickening. With dobutamine administration there was progressive increase in contractility noted of all segments and at peak exercise there was excellent augmentation suggesting that there is no evidence of ischemia. Final impression: Normal dobutamine stress echo. Equivocal technically inconclusive stress test by EKG criteria because of LVH type changes on the resting EKG. Dr. Melva Mccain MD (Electronically Signed) Final Date: 28 Jun 2024 12:52
[2024-06-28 14:42] VITALS: BP 128/78; PULSE 72; RESP 17; TEMP 97.9
--- NOTE | 2024-06-28 15:23 | P.HPIM ---
History of Present Illness H&P Date: 06/28/24 Chief Complaint: Chest pain Patient is a 49-year-old male without significant past medical history presents to ER with complaints of substernal sharp chest pain this morning and woke him from sleep. Radiating to the bilateral upper shoulders. Denied any associated shortness of breath. No nausea vomiting or diaphoresis. No headache or dizziness or lightheadedness. Pain lasted about an hour. Does not know what made him better. Otherwise patient does smoke about 1 pack/day. Denied any leg swelling. No exertional dyspnea. No prior history of coronary artery disease. Denied any recent use of NSAIDs. Chest x-ray showed chronic emphysematous changes without acute pulmonary process. EKG showed EKG showed normal sinus rhythm Laboratory data showed WBC 9.39 hemoglobin 14.8 and platelets 284, D-dimer 0.23 BUN 19 and creatinine was 0.11 blood sugar 101 AST 27 ALT 26 alk phos 74 Troponin x 3 negative ROS Constitutional: Patient denies any fever or chills . No generalized weakness or weight loss. Abdomen: Patient denied nausea vomiting and diarrhea and abdominal pain. Cardiovascular: Patient denies any chest pain or short of breath no palpitations. Respiratory: patient denied any cough or sputum production. No shortness of breath Neurologic: Patient denied any numbness or tingling. no headache. Musculoskeletal: Patient denies any complaints of joint swelling or deformity. Skin: Negative Psychiatric: Negative Endocrine: No heat or cold intolerance. No recent weight gain. Genitourinary: No dysuria or hematuria. All other 14 point ROS negative except the above PHYSICAL EXAMINATION: Patient is lying in the bed comfortably, no acute distress, awake alert and oriented.. HEENT: Normocephalic. Neck is supple. Pupils reactive. Nostrils clear. Oral cavity is moist. Neck reveals no JVD, carotid bruits, or thyromegaly. CHEST EXAMINATION: Trachea is central. Symmetrical expansion. Lung alegria clear to auscultation and percussion. CARDIAC: Normal S1, S2 with no gallops. No murmurs ABDOMEN: Soft. Bowel sounds normal. No organomegaly. No abdominal bruits. Extremities: reveal no edema. No clubbing or cyanosis Neurologically awake, alert, oriented x3 with well-coordinated movements. No focal deficits noted Skin: No rash or skin lesions. Psychiatric: Coperative. Nonsuicidal Musculoskeletal: No joint swelling or deformity. Normal range of motion. Assessment and plan. Atypical chest pain. Ruled out ACS. Ongoing nicotine addiction 1 pack/day Possible underlying COPD DVT prophylaxis with early ambulation Plan: Patient will be continued on telemetry. Serial EKG and troponin x 3 negative. D-dimer is not elevated. Cardiology has seen the patient recommend stress echocardiogram. Currently patient denied any chest pain. Follow-up closely. Smoking cessation has been counseled extensively. 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 PT'S DAUGHTER LIVES WITH HIM. NO SERVICE IN BACKGROUND. PT STATED HE HAS'NT BEEN TO A DR IN 10 YEARS. Smoking Status: Current every day smoker Past Alcohol Use History: None Reported Additional Past Alcohol Use History / Comment(s): STARTED SMOKING AT AGE 13, SMOKES 1 PPD, SMOKING INFO GIVEN TO PT. Past Drug Use History: Marijuana - Past Family History Mother Family Medical History: Diabetes Mellitus Additional Family Medical History / Comment(s): HEART DISEASE Father Family Medical History: Diabetes Mellitus Medications and Allergies Home Medications Medication Instructions Recorded Confirmed Type No Known Home Medications 06/28/24 06/28/24 History Allergies Allergy/AdvReac Type Severity Reaction Status Date / Time No Known Allergies Allergy Verified 06/28/24 07:24 Physical Exam Vitals: Vital Signs Temp Pulse Pulse Resp BP BP Pulse Ox 06/28/24 07:58 97.7 F 70 18 132/79 99 06/28/24 07:55 98.1 F 90 18 132/78 96 06/28/24 04:52 98.5 F 89 20 140/86 96 Intake and Output 06/27/24 06/28/24 06/28/24 22:59 06:59 14:59 Other: Weight 74.843 kg 74.843 kg Results CBC & Chem 7: 06/28/24 05:27 06/28/24 05:27 Labs: Abnormal Lab Results - Last 24 Hours (Table) 06/28/24 06/28/24 Range/Units 05:27 05:27 MPV 9.2 L (9.5-12.2) fL Eosinophils # 0.44 H (0.04-0.35) 10*3/uL Basophils # 0.11 H (0.00-0.10) 10*3/uL Glucose 101 H (74-99) mg/dL Thrombosis Risk Factor Assmnt - Choose All That Apply Any of the Below Risk Factors Present?: Yes Each Factor Represents 1 point: Age 41-60 years Thrombosis Risk Factor Assessment Total Risk Factor Score: 1 Thrombosis Risk Factor Assessment Level: Low Risk
== END 2024-06-28 15:36 | disposition home or self-care (01) ==
LOC: EC 04:45 → 1SOBS 06:08
PROVIDERS: ADMIT Hospitalist; ATTEND Hospitalist
DX: R07.2 Precordial pain (principal); J43.9 Emphysema, unspecified; E78.5 Hyperlipidemia, unspecified; R07.89 Other chest pain; F17.210 Nicotine dependence, cigarettes, uncomplicated; Z71.6 Tobacco abuse counseling; Z82.49 Family history of ischemic heart disease and other diseases of the circulatory system
CPT/HCPCS: 99285; 36415; 93005; 93351; 85379; 80053; 83735; 84484; 85025; 85610; 85730; 71046; G0378; J1250; J0461